=== PATIENT | female | born 1980 | race Caucasian/White ===

== ENCOUNTER 2016-12-18 12:39 | Emergency (ER) | payer OTHER ==
[~2016-12-18] VITALS: Ht 162.6 cm; Wt 56.7 kg
[~2016-12-18 12:39] MED LIST: AUGMENTIN PO; BACTRIM DS TABL1 TA1 PO; BACTRIM DS TABL1 TAB PO; FLEXERIL10 MG PO; HYDROCODON-ACE1 EACH PO; KLONOPIN2 MG PO; MEDROL PO; METHADONE PO; NEURONTIN300 MG PO; PENTASA250 MG PO; PRILOSEC20 M1 PO; PRILOSEC20 MG PO; TRAZODONE PO; ULTRAM PO; VICODIN 5/500 T1 TAB PO; VIT B-12 PO; VOLTAREN50 MG PO; [UNRECOGNIZED DRUG - OTHER]
== END 2016-12-18 14:00 | disposition home or self-care (01) ==
LOC: CED 12:39 → CFTX 12:39
DX: Z76.0 Encounter for issue of repeat prescription (principal); G40.909 Epilepsy, unspecified, not intractable, without status epilepticus; K50.90 Crohn's disease, unspecified, without complications; F17.210 Nicotine dependence, cigarettes, uncomplicated
CPT/HCPCS: 99281